=== PATIENT | female | born 1945 | race Caucasian/White ===

== ENCOUNTER 2017-02-28 13:33 | Emergency (ER) | payer MEDICARE ==
[~2017-02-28 13:33] MED LIST: ANTIVERT25 MG PO; ASPIR 8181 MG PO; ATIVAN0.5 MG PO; FLUTICASONE PRO16 GM NS; FOLIC ACID0.4 MG PO; HYDROXYZINE HCL50 MG PO; ISOSORBIDE MONO60 MG PO; NAPROXEN500 MG PO; NITROSTAT0.4 MG SL; PHENERGAN25 M1 PO; PRAVACHOL40 MG PO; PRILOSEC20 M1 PO; RANEXA500 MG PO; REGLAN10 MG PO; RESTASIS1 EACH OU; TENORMIN25 MG PO; VITAMIN B-121000 MCG PO; VITAMIN C500 M1 PO; VITAMIN D31000 UNI1 PO; ZOFRAN ODT4 MG PO; ZYRTEC10 MG PO
== END 2017-02-28 15:16 | disposition home or self-care (01) ==
LOC: ER 13:33
DX: G43.109 Migraine with aura, not intractable, without status migrainosus (principal); E87.1 Hypo-osmolality and hyponatremia; Z79.82 Long term (current) use of aspirin; Z79.899 Other long term (current) drug therapy; Z88.1 Allergy status to other antibiotic agents
CPT/HCPCS: 36415